=== PATIENT | female | born 2000 | race Two or more races ===

== ENCOUNTER 2023-09-02 13:23 | Emergency (ER) | payer MEDICAID, OTHER ==
[~2023-09-02] VITALS: Ht 157.5 cm; Wt 75.3 kg
[2023-09-02 14:08] VITALS: BP 150/76; PULSE 125; RESP 18; O2SAT 92
== END 2023-09-02 15:18 | disposition left against medical advice (07) ==
LOC: ER 13:23
DX: R56.9 Unspecified convulsions (principal); Z53.21 Procedure and treatment not carried out due to patient leaving prior to being seen by health care provider